=== PATIENT | female | born 2000 | race Caucasian/White ===

== ENCOUNTER 2023-08-13 10:47 | Emergency (ER) | payer OTHER, SELFPAY ==
[2023-08-13 10:55] VITALS: BP 114/70; PULSE 91; RESP 18; TEMP 36.8; O2SAT 96; BMI 31.1
--- NOTE | 2023-08-13 12:00 | US_ITS ---
The [address] [address] Patient Name: NED DENNIS MRN: [id number] date: 2000 Sex: F Assigned Patient Location: ED.MAIN Current Patient Location: ER Accession/Order Number: [id number] Exam Date: 08/13/2023 12:12 Report Date: 08/13/2023 12:44 At the request of: OSIRIS ZAMORA Procedure: US OB transvaginal EXAMINATION: US OB transvaginal HISTORY: spotting COMPARISON: No relevant comparison available. FINDINGS: No intrauterine or ectopic is observed. The uterus is normal in size, contour and echotexture, retroverted. The right ovary is normal measuring 2.5 x 1.5 x 2.1 cm. Multiple subcentimeter peripheral anechoic areas, follicles. The left ovary is normal measuring 1.6 x 3.4 x 1.4 cm. Multiple subcentimeter peripheral anechoic areas, follicles. The cervix is closed measuring 3.4 cm US/US OB transvaginal IMPRESSION: No intrauterine or ectopic observed. Correlate with quantitative beta hCG Electronically authenticated by: ZOE JACINTO Date: 08/13/2023 12:44
[2023-08-13 12:17] LABS: Basophils Percent Auto 0.3 % (0.2-2.0); Eosinophils Absolute Auto 0.2 10^3/uL (0.0-0.7); Eosinophils Percent Auto 2.6 % (0.9-7.0); Hematocrit 37.8 % (36.0-48.0); Hemoglobin 12.5 g/dL (12.0-16.0); Immature Granulocytes Abs Auto 0.04 10^3/uL (0.00-0.03); Immature Granulocytes Pct Auto 0.4 % (0.0-0.5); Lymphocytes Absolute Auto 2.1 10^3/uL (1.2-3.8); Lymphocytes Percent Auto 22.1 % (20.5-60.0); Mean Corpuscular HGB Conc 33.1 g/dL (29.9-35.2); Mean Corpuscular Hemoglobin 27.5 pg (26.7-34.0); Mean Corpuscular Volume 83.1 fL (81.0-99.0); Mean Platelet Volume 9.7 fL (9.5-13.5); Monocytes Absolute Auto 0.6 10^3/uL (0.3-0.8); Neutrophils Absolute Auto 6.4 10^3/uL (1.4-6.5); Neutrophils Percent Auto 68.6 % (43.0-75.0); Platelet Count 310 10^3/uL (150-450); Red Blood Count 4.55 10^6/uL (4.20-5.40); Red Cell Distribution Width 12.7 % (11.0-15.0); White Blood Count 9.4 10^3/uL (4.0-11.0)
[2023-08-13 12:38] LABS: Alanine Aminotransferase 33 U/L (14-59); Albumin Globulin Ratio 0.8; Albumin Level 3.5 g/dL (3.4-5.0); Alkaline Phosphatase 83 U/L (46-116); Anion Gap 10.1; Aspartate Amino Transferase 19 U/L (15-37); BUN Creatinine Ratio 17.1; Bilirubin Total 0.3 mg/dL (0.2-1.0); Calcium 8.7 mg/dL (8.5-10.1); Carbon Dioxide 28.7 mmol/L (21.0-32.0); Chloride 105 mmol/L (98-107); Estimated GFR (African America >60 (>=60); Estimated GFR (Non-African Ame >60 (>=60); Globulin 4.4 g/dL; Glucose 86 mg/dL (74-106); HCG Quantitative 8 mIU/mL; Potassium 3.8 mmol/L (3.5-5.1); Sodium 140 mmol/L (136-145); Total Protein 7.9 g/dL (6.4-8.2)
[2023-08-13 12:40] VITALS: BP 120/66; PULSE 83; RESP 18; O2SAT 98
--- NOTE | 2023-08-13 14:18 | ED_ITS ---
HPI - Female Genitourinary General Chief complaint: Vaginal Bleeding Stated complaint: Spotting 5 weeks Time Seen by Provider: 08/13/23 11:24 Source: patient Mode of arrival: walk-in Limitations: no limitations History of Present Illness HPI Narrative: The patient presented to us with vaginal spotting, the patient apparently had a test done in the last few days and it was positive and she actually did 5 test just to make sure they all came positive, the patient denies any abdominal pain nausea vomiting or any other complaints She was supposed to make an appointment with her OB doctor but not yet, the patient last menstruation was in June Related Data Home Medications Medication Instructions Recorded Confirmed No Known Home Medications 08/13/23 08/13/23 Allergies Allergy/AdvReac Type Severity Reaction Status Date / Time amoxicillin AdvReac Intermediate Verified 08/13/23 10:55 Review of Systems ROS Status of ROS 10 or more systems reviewed and unremark able except as noted in history and below PFSH PFSH Social History Smoking status: Never smoker Exam Narrative Exam Narrative: Nurses notes and vital signs reviewed and patient is not hypoxic. General: Well-appearing and in no apparent distress. Skin: Warm, dry, no pallor noted. No rash. Head: Normocephalic, atraumatic. Neck: Supple, non-tender. Eye: Pupils are equal, round and EOMI. No scleral icterus. Ears, Nose, Mouth, and Throat: TM are clear, no nasal mucosal hypertrophy. Oral mucosa is moist, no posterior oropharynx erythema, uvula is mid-line Cardiovascular: Regular Rate and Rhythm without murmur, gallop or rub. Respiratory: No accessory muscle use or respiratory distress. Lungs are clear to auscultation, no wheezing, rales or rhonchi Chest Wall: no tenderness Back: No midline thoracic or lumbar vertebral tenderness. No CVA tenderness Musculoskeletal: normal ROM, no calf or popliteal tenderness, no lower extremity edema/swelling GI: Abdomen is soft, non-distended. Normal bowel sounds. No masses appreciated. No tenderness to palpation. No rebound, guarding, or rigidity noted. Neurological: A&O x4. No cranial nerve dysfunction observed. No truncal ataxia. Moves all extremities. Sensation intact. Psychiatric: Cooperative and interactive. Normal mood and affect. Constitutional Vital Signs, click to edit/add: Last Vital Signs Temp 98.3 F 08/13/23 10:55 Pulse 83 08/13/23 12:40 Resp 18 08/13/23 12:40 BP 120/66 08/13/23 12:40 Pulse Ox 98 08/13/23 12:40 O2 Del Method Room Air 08/13/23 10:55 Course Vital Signs Vital signs: Vital Signs Temperature 98.3 F 08/13/23 10:55 Pulse Rate 91 H 08/13/23 10:55 Respiratory Rate 18 08/13/23 10:55 Blood Pressure 114/70 08/13/23 10:55 Pulse Oximetry 96 08/13/23 10:55 Oxygen Delivery Method Room Air 08/13/23 10:55 Temperature 98.3 F 08/13/23 10:55 Pulse Rate 83 08/13/23 12:40 Respiratory Rate 18 08/13/23 12:40 Blood Pressure 120/66 08/13/23 12:40 Pulse Oximetry 98 08/13/23 12:40 Oxygen Delivery Method Room Air 08/13/23 10:55 MDM - Female Genitourinary MDM Narrative Medical decision making narrative: The patient CBC and chemistry showed no acute pathology The patient hCG level is 8 She is O+ blood group type Ultrasound of the pelvis showed no acute significant pathology which is correlating with the fact that the patient is early although I did mention to her that she need to follow-up with her OB doctor and also repeat the test to confirm . The patient still to come back to the ER in case of increasing abdominal pain or vaginal bleeding . The patient is to follow up with primary care physician in next 2-3 days or to return to the emergency department should any of the signs or symptoms worsen or new symptoms develop. The patient agrees with the following Diagnosis and Treatment plan and the patient will be discharged home. Lab Data Labs: Lab Results 08/13/23 Range/Units 12:00 WBC 9.4 (4.0-11.0) 10^3/uL RBC 4.55 (4.20-5.40) 10^6/uL Hgb 12.5 (12.0-16.0) g/dL Hct 37.8 (36.0-48.0) % MCV 83.1 (81.0-99.0) fL MCH 27.5 (26.7-34.0) pg MCHC 33.1 (29.9-35.2) g/dL RDW 12.7 (11.0-15.0) % Plt Count 310 (150-450) 10^3/uL MPV 9.7 (9.5-13.5) fL Neut % (Auto) 68.6 (43.0-75.0) % Lymph % (Auto) 22.1 (20.5-60.0) % [place] % (Auto) 6.0 (1.7-12.0) % Eos % (Auto) 2.6 (0.9-7.0) % Baso % (Auto) 0.3 (0.2-2.0) % Neut # (Auto) 6.4 (1.4-6.5) 10^3/uL Lymph # (Auto) 2.1 (1.2-3.8) 10^3/uL [place] # (Auto) 0.6 (0.3-0.8) 10^3/uL Eos # (Auto) 0.2 (0.0-0.7) 10^3/uL Baso # (Auto) 0.0 (0.0-0.1) 10^3/uL Abs Immat Gran (auto) 0.04 H (0.00-0.03) 10^3/uL Imm/Tot Granulo (auto) 0.4 (0.0-0.5) % Sodium 140 (136-145) mmol/L Potassium 3.8 (3.5-5.1) mmol/L Chloride 105 (98-107) mmol/L Carbon Dioxide 28.7 (21.0-32.0) mmol/L Anion Gap 10.1 BUN 13.0 (7.0-18.0) mg/dL Creatinine 0.76 (0.55-1.02) mg/dL Est GFR ( Amer) >60 (>=60) Est GFR (Non-Af Amer) >60 (>=60) BUN/Creatinine Ratio 17.1 Glucose 86 (74-106) mg/dL Calcium 8.7 (8.5-10.1) mg/dL Total Bilirubin 0.3 (0.2-1.0) mg/dL AST 19 (15-37) U/L ALT 33 (14-59) U/L Alkaline Phosphatase 83 (46-116) U/L Total Protein 7.9 (6.4-8.2) g/dL Albumin 3.5 (3.4-5.0) g/dL Globulin 4.4 g/dL Albumin/Globulin Ratio 0.8 HCG, Quant 8 mIU/mL Blood Type O Positive Antibody Screen Negative Discharge Plan Discharge Chief Complaint: Vaginal Bleeding Clinical Impression: Vaginal bleeding during Patient Disposition: Home, Self-Care Time of Disposition Decision: 13:23 Condition: Good Mode of Transportation: Private Vehicle Prescriptions / Home Meds: No Action No Known Home Medications Instructions: (ED) Stand Alone Forms: Portal Instructions Referrals: Sebastien Kim DO [Physician] - 1 week ELLIS OSORIO [Primary Care Provider] - 1 week Discharge Date/Time: 08/13/23 13:37
== END 2023-08-13 13:37 | disposition home or self-care (01) ==
PROVIDERS: Emergency Provider Emergency Medicine; PCP Family Medicine
DX: O20.9 Hemorrhage in early pregnancy, unspecified (principal); Z3A.01 Less than 8 weeks gestation of pregnancy
CPT/HCPCS: 36415; 76817; 80053; 84702; 85025; 86850; 86900; 86901; 99284

== ENCOUNTER 2023-08-21 12:35 | Outpatient (OUT) | payer OTHER, SELFPAY ==
[2023-08-21 13:34] LABS: HCG Quantitative <1 mIU/mL
== END 2023-08-21 12:36 | disposition home or self-care (01) ==
PROVIDERS: PCP Family Medicine; Visit Provider Obstetrics & Gynecology
DX: N92.6 Irregular menstruation, unspecified (principal)
CPT/HCPCS: 36415; 84702